=== PATIENT | female | born 1990 | race Caucasian/White ===

== ENCOUNTER 2018-02-25 20:19 | Emergency (ER) | payer MEDICAID ==
[~2018-02-25] VITALS: Ht 165.1 cm; Wt 86.0 kg
[2018-02-25 20:44] LABS: URINE HCG NEGATIVE (NEG)
[2018-02-25 20:51] LABS: CLARITY,URINE CLEAR (Clear); COLOR,URINE ORANGE (Yellow)
[2018-02-25 20:55] LABS: UA COLLECTION TYPE CLN CATCH MIDSTREAM
[2018-02-25 20:58] LABS: RBC,URINE 0-2 /HPF (0-2); WBC,URINE 0-4 /HPF (0-4)
[2018-02-25 20:59] LABS: BACTERIA,URINE 1+ /HPF (Neg); MUCUS STRANDS MODERATE /LPF (Neg); SQUAMOUS EPITHELIAL CELL,UR MODERATE /LPF (FEW)
[2018-02-25] MEDS ORDERED: normal saline 1000ml 1,000 ML IV ONE (22:15)
[2018-02-25 22:32] VITALS: BP 112/62
[2018-02-25] MEDS: metoclopramide 5 mg/ml inj IV ONE ×2 (22:44→22:54)
[2018-02-25] MEDS ORDERED: LIDOcaine Viscous 15ml cup MM PRN (22:55)
[2018-02-25] MEDS ORDERED: ondansetron/PF 4mg/2ml inj IV ONE (22:55)
[2018-02-25] MEDS ORDERED: mag hydrox/Alum hydrox/simeth 30ml oral suspension PO ONE (22:55)
== END 2018-02-25 23:44 | disposition home or self-care (01) ==
LOC: ER 20:20
DX: R10.9 Unspecified abdominal pain (principal); R11.2 Nausea with vomiting, unspecified; R50.9 Fever, unspecified; F15.90 Other stimulant use, unspecified, uncomplicated; Z88.5 Allergy status to narcotic agent
CPT/HCPCS: 81001; 81025; 96361; 96374; 99284; J2405; J7030; J2765

== ENCOUNTER 2018-03-10 18:07 | Emergency (ER) | payer MEDICAID ==
[~2018-03-10] VITALS: Ht 167.6 cm; Wt 81.8 kg
[~2018-03-10 18:07] MED LIST: LORA1TAB PO; OMEP40CA37 PO; ONDA4TAB12 PO; POTA20TA19 PO
[2018-03-10 18:34] LABS: BASOPHILS % (AUTO) 0.2 % (0-1); EOSINOPHILS # (AUTO) 0.2 X10'3 (0-0.9); EOSINOPHILS % (AUTO) 1.2 % (0-6); HEMATOCRIT 35.8 % (35.0-45.0); HEMOGLOBIN 12.3 g/dl (12.0-16.0); LYMPHOCYTES # (AUTO) 1.9 X10'3 (1.1-4.8); LYMPHOCYTES % (AUTO) 12.6 % (21-51); MEAN CORPUSCULAR HEMOGLOBIN 31.9 PG (27.0-31.0); MEAN CORPUSCULAR HGB CONC 34.4 % (33.0-36.5); MEAN CORPUSCULAR VOLUME 92.6 FL (78-98); MEAN PLATELET VOLUME 8.4 FL (7.4-10.4); MONOCYTES # (AUTO) 0.6 X10'3 (0-0.9); MONOCYTES % (AUTO) 4.3 % (2-12); NEUTROPHILS % (AUTO) 81.7 % (42-75); PLATELET COUNT 280 X10'3 (140-440); RED BLOOD COUNT 3.87 X10'6 (4.20-5.60); RED CELL DISTRIBUTION WIDTH 13.1 % (11.5-14.5); WHITE BLOOD COUNT 14.7 X10'3 (4.5-11.0)
[2018-03-10 18:43] LABS: PROTHROMBIN TIME 10.5 SECONDS (9.0-12.0)
[2018-03-10 18:48] LABS: ALANINE AMINOTRANSFERASE 21 U/L (12-78); ALBUMIN 3.6 G/DL (3.4-5.0); ALBUMIN/GLOBULIN RATIO 1.2 (1.1-1.5); ALKALINE PHOSPHATASE 67 IU/L (46-116); ANION GAP 8 (8-16); ASPARTATE AMINO TRANSFERASE 10 U/L (10-37); BILIRUBIN,TOTAL 0.4 MG/DL (0.1-1.0); BLOOD UREA NITROGEN 12 MG/DL (7-18); BUN/CREATININE RATIO 14.3 (6.6-38.0); CALCIUM 9.3 MG/DL (8.5-10.1); CHLORIDE 106 MMOL/L (99-107); CREATININE 0.84 MG/DL (0.40-0.90); GLUCOSE 108 MG/DL (70-104); LIPASE 83 U/L (73-393); POTASSIUM 3.6 MMOL/L (3.5-5.1); SODIUM 143 MMOL/L (135-145); TOTAL CARBON DIOXIDE 29.5 MMOL/L (24-32); TOTAL PROTEIN 6.7 G/DL (6.4-8.2); eGFR 81 ML/MIN
[2018-03-10 18:58] LABS: PLATELET ESTIMATE NORMAL; TOTAL CELLS COUNTED 100; TOXIC GRANULATION 1+; TOXIC VACUOLATION 1+
[2018-03-10 19:21] LABS: URINE HCG NEGATIVE (NEG)
[2018-03-10 19:25] LABS: CLARITY,URINE CLEAR (Clear); COLOR,URINE YELLOW (Yellow); GLUCOSE, URINE NEGATIVE (Neg); KETONES,URINE NEGATIVE (Neg); LEUKOCYTE ESTERASE ,URINE NEGATIVE (Neg); NITRITES, URINE NEGATIVE (Neg); OCCULT BLOOD,URINE NEGATIVE (Neg); PH,URINE 6.5 (4.8-8.0); PROTEIN,URINE NEGATIVE (Neg); UROBILINOGEN,URINE 0.2 E.U/dL (0.2-1.0)
[2018-03-10] MEDS ORDERED: IBUP-2264 PO (19:32)
[2018-03-10] MEDS ORDERED: PROC-8 PO (19:32)
[2018-03-10 19:34] LABS: UA COLLECTION TYPE CLN CATCH MIDSTREAM
[2018-03-10] MEDS ORDERED: CEFU500T66 PO (19:34)
[2018-03-10] MEDS ORDERED: LORA1TAB PO (19:38)
[2018-03-10] MEDS ORDERED: OMEP40CA37 PO (19:40)
[2018-03-10] MEDS ORDERED: POTA20TA19 PO (19:40)
[2018-03-10] MEDS ORDERED: iohexol 300mg/ml 100ml inj. ONE (20:46)
[2018-03-10] MEDS ORDERED: acetaminophen 325mg tablet PO ONE (21:10)
[2018-03-10] MEDS ORDERED: ondansetron/PF 4mg/2ml inj IV ONE (21:30)
[2018-03-10] MEDS ORDERED: HYDR-3965 PO (22:00)
[2018-03-10] MEDS ORDERED: ketorolac trometh inj. 60 MG/2 ML VIAL IM ONE (22:15)
[2018-03-10] MEDS ORDERED: LORazepam 1 MG tablet PO ONE (22:40)
[2018-03-10] MEDS ORDERED: LORA-269 PO (22:43)
[2018-03-10 23:03] VITALS: BP 126/75
[2018-03-11] MEDS ORDERED: acetaminophen 1,000mg/100ml IV 100 ML IV SCH (02:00)
== END 2018-03-10 23:05 | disposition home or self-care (01) ==
LOC: ER 18:08
DX: R10.32 Left lower quadrant pain (principal); F41.9 Anxiety disorder, unspecified; F15.90 Other stimulant use, unspecified, uncomplicated; K44.9 Diaphragmatic hernia without obstruction or gangrene; Z56.0 Unemployment, unspecified; Z88.5 Allergy status to narcotic agent; Z79.899 Other long term (current) drug therapy
CPT/HCPCS: 36415; 74177; 80053; 81003; 81025; 83690; 85025; 85610; 96372; 96374; 99285; J1885; J2405; J7030; Q9967